=== PATIENT | male | born 2000 | race Hispanic/Latino ===

== ENCOUNTER 2025-03-02 15:37 | Emergency (ER) | payer SELFPAY ==
--- OUTSIDE RECORDS SUMMARY | 2025-03-02 15:39 | XMS_ITS | Clinical Summary ---
Author Organization [facility] Address [address] [place] [address] Care Team Providers Care House Builder Name Role Phone Lissette Huber MD Primary Care Provider Source Comments [facility],non-owned Affiliates and Associated Physician Practices is amultiple site organization consisting of ambulatory clinics and hospital sitesin [place], [place], [place] and [place]. This disclosure is being madepursuant to the Care Everywhere program and may not contain all information available regarding this patient. Last updated 18.[facility] [employer] Allergies No known active allergies Medications * Be aware that medications may not be up to date on this document. Alwaysverify current medications with the patient. 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 Gender Identity Not on file Sexual Orientation Not on file Last Filed Vital Signs Vital Sign Reading Time Taken Comments Blood Pressure 116/58 08/19/2015 5:23 PM CDT Pulse 100 08/19/2015 4:02 PM CDT Temperature 37.9 C (100.3 F) 08/19/2015 5:23 PM CDT Respiratory Rate 16 08/19/2015 5:23 PM CDT Oxygen Saturation 100% 08/19/2015 5:23 PM CDT Inhaled Oxygen Concentration - - Weight 57.9 kg (127 lb 10.3 oz) 08/19/2015 4:02 PM CDT Height - - Body Mass Index - - Plan of Treatment Health Maintenance Due Date Last Done Comments HIV SCREENING 2017 HPV VACCINE (1 - Male 3-dose series) 2017 MENINGOCOCCAL (Group B) VACC INE SHARED DECISION-MAKING (1 of 2 - Standard) 2018 HEPATITIS C SCREENING 03/09/2020 DTAP/TDAP/TD VACCINES (1 - Tdap) 2021 HEPATITIS B VACCINE (1 of 3 - 19+ 3-dose series) 2021 COVID-19 VACCINE (1 - 2023-2 5 season) 2024 DEPRESSION SCREENING 10/20/2024 INFLUENZA VACCINE (Season Ended) 2025 ZOSTER VACCINE (1 of 2) 2052 HIB VACCINE Aged Out No longer eligi ble based on patient's age to complete this topic MENINGOCOCCAL GROUPS A/C/Y/W VACCINE Aged Out No longer eligible b ased on patient's age to complete this topic PNEUMOCOCCAL VACCINE Aged Out No long er eligible based on patient's age to complete this topic Insurance Care Teams House Builder Relationship Specialty Start Date End Date Lissette Huber MD [address] [place] [address] [address] [place] [phone] PCP - General Family Medicine 04/26/14
[2025-03-02 15:42] VITALS: BP 120/69; PULSE 80; RESP 19; TEMP 36.7; O2SAT 100
--- NOTE | 2025-03-02 16:40 | ED.SKABFB ---
HPI - Skin/Abscess/Foreign Bdy General Chief complaint: Skin/Abscess/Foreign Body Stated complaint: R breast mass? also on his R side? Time Seen by Provider: 03/02/25 16:33 History of Present Illness HPI narrative: Pt presents with three separate unrelated complaints. Pt had a lump under his right nipple that was a little tender but now is not tender but he can still feel the bump. Pt also has a spot on his waistline that was tender and red but has now nearly resolved. Pt also has had an intermittent posterior BAUM on the left at the base of his skull that comes and goes. Pt denies fever or focal neuro symptoms. Related Data Allergies Allergy/AdvReac Type Severity Reaction Status Date / Time No Known Allergies Allergy Verified 11/24/18 21:16 Review of Systems Review of Systems: All systems reviewed & are unremarkable except as noted in HPI and below Exam Const: General: healthy appearing and no acute distress Nutritional Appearance: well nourished Orientation/consciousness: patient oriented x3 Limitations: no limitations HENMT: Head: normal to inspection Eyes: Pupils: Equal, round and reactive pupils present EOM: EOMs intact bilaterally Neck: Neck: normal visual inspection Other: some tenderness left occiput/upper c spine with some spasm Chest: Other: non tender nodule under left nipple Resp: Effort & Inspection: normal respiratory effort Auscultation: clear to auscultation bilaterally Cardio: Rate: regular rate Rhythm: regular rhythm GI: GI Palp: Yes Soft to palpation and No Tenderness to palpation present (GI) Auscultation: normal bowel sounds Skin: Other: small healed abscess or folliculitis waistband on right Neuro: General: patient oriented x3, moves all extremities and no focal motor deficits Speech: normal speech Extrem: General: normal to inspection and no clubbing, cyanosis or edema Psych: Mental Status: mental status grossly normal Affect: normal affect Attitude: cooperative Course Vital Signs Vital signs: Vital Signs Temperature 98.0 F 03/02/25 15:42 Pulse Rate 80 03/02/25 15:42 Respiratory Rate 03/02/25 15:42 Blood Pressure 120/69 03/02/25 15:42 Pulse Oximetry 100 03/02/25 15:42 Temperature 98.0 F 03/02/25 15:42 Pulse Rate 80 03/02/25 15:42 Respiratory Rate 03/02/25 15:42 Blood Pressure 120/69 03/02/25 15:42 Pulse Oximetry 100 03/02/25 15:42 MDM - Skin/Abscess/Foreign Bdy MDM Narrative Medical decision making narrative: Pt has 3 separate complaits per HPI. will give a few flexeril for BAUM and some bactoban for area on waist. Pt told to watch for tenderness or growing of nodule under nipple Discharge Plan Discharge Clinical Impression: Folliculitis Patient Disposition: Home Condition: Stable Instructions: Antibiotic Form, Folliculitis (ED) Patient Language: Macanese Prescriptions: New mupirocin [Centany] 2 % ointment 1 applic topical BID Qty: 15 0RF cyclobenzaprine 10 mg tablet 10 mg PO TID Qty: 20 0RF Follow-up/Referrals: PHYSICIAN NOT ON STAFF,NONSTAFF [Non-Staff] -
--- OUTSIDE RECORDS SUMMARY | 2025-03-02 16:59 | XMS_ITS | Clinical Summary ---
Author Organization [facility] Address [address] [place] [address] Care Team Providers Care Manufacturing Engineering Director Name Role Phone Lissette Huber MD Primary Care Provider [phone] Source Comments [facility],non-owned Affiliates and Associated Physician Practices is amultiple site organization consisting of ambulatory clinics and hospital sitesin [place], [place], [place] and [place]. This disclosure is being madepursuant to the Care Everywhere program and may not contain all information available regarding this patient. 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
== END 2025-03-02 17:10 | disposition home or self-care (01) ==
LOC: ANHED 16:58
PROVIDERS: Emergency Provider Emergency Medicine
DX: L73.9 Follicular disorder, unspecified (principal)
CPT/HCPCS: 99283

== ENCOUNTER 2025-07-23 07:00 | Emergency (ER) | payer SELFPAY ==
--- NOTE | ~2025-07-23 | XR_ITS ---
Examination: XR chest 2V Clinical History: Chest pain Comparison: 07/10/2021 Technique: PA and Lateral Findings: Cardiomediastinal silhouette normal size and configuration. Lungs clear. No acute bony abnormality. IMPRESSION: 1. No acute cardiopulmonary findings. Reviewed, dictated and finalized at location R.
[2025-07-23 07:12] VITALS: BP 127/82; PULSE 73; RESP 18; TEMP 36.6; O2SAT 98
--- NOTE | 2025-07-23 07:12 | ECG_ITS ---
Test Date: 2025-07-23 07:05:51 Measurements Intervals [place] Rate: 70 P: 46 AK: 146 QRS: 46 QRSD: 85 T: 37 QT: 333 QTc: 360 Interpretive Statements SINUS RHYTHM BASELINE ARTIFACT- I, II, AVR NORMAL ECG No previous ECG available for comparison Electronically Signed On 07-23-2025 07:16:55 CDT by Miguel Malik D.O.
[2025-07-23 07:24] VITALS: PULSE 86; O2SAT 100
[2025-07-23 07:26] VITALS: BP 127/82; PULSE 79; RESP 20; O2SAT 98
--- OUTSIDE RECORDS SUMMARY | 2025-07-23 07:39 | XMS_ITS | Clinical Summary ---
Author Organization [facility] Address [address] [place] [address] Care Team Providers Care Push Button Switch Assembler Name Role Phone Lissette Huber MD Primary Care Provider [phone] Source Comments [facility],non-owned Affiliates and Associated Physician Practices is amultiple site organization consisting of ambulatory clinics and hospital sitesin [place], [place], [place]. This disclosure is being madepursuant to the Care Everywhere program and may not contain all information available regarding this patient. 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 Gender Identity Not on file Sexual Orientation [...] of 3 - 19+ 3-dose series) 2021 DEPRESSION SCREENING 10/20/2024 COVID-19 VACCINE (1 - 2023-2 5 season) 2025 INFLUENZA VACCINE (#1) 2025 ZOSTER VACCINE (1 of 2) 2052 HIB VACCINE Aged Out No longer eligi ble based on patient's age to complete this topic MENINGOCOCCAL GROUPS A/C/Y/W VACCINE Aged Out No longer eligible b ased on patient's age to complete this topic PNEUMOCOCCAL VACCINE Aged Out No long er eligible based on patient's age to complete this topic Insurance Care Teams Push Button Switch Assembler Relationship Specialty Start Date End Date Lissette Huber MD [address] [place] [address] [address] [place] [phone] PCP - General Family Medicine 04/26/14
[2025-07-23] MEDS: BELLADONNA ALK/PHENOB ELIX 10 ML, MAG HYDROX/ALUMINUM HYD/SIMETH 30 ML, LIDOCAINE 2% VI... PO (07:45)
[2025-07-23] MEDS: PANTOPRAZOLE 40 MG TABLET PO (07:45)
[2025-07-23 07:56] LABS: Hematocrit 48.1 % (42.0-52.0); Hemoglobin 15.6 g/dL (14.0-18.0); Immature Granulocyte Percent A 0.9 % (0-0.5); Lymphocytes Absolute Auto 3.03 K/mm3 (0.9-3.2); Mean Corpuscular HGB Conc 32.4 g/dl (32-36); Mean Corpuscular Hemoglobin 26.7 pg (26-34); Mean Corpuscular Volume 82.2 fl (80-100); Nucleated Red Blood Cells Absolute Auto 0.000 K/mm3 (0.0-0.012); Nucleated Red Blood Cells Perc 0.0 % (0.0-0.2); Platelet Count Result 271 k/mm3 (150-375); Red Blood Count 5.85 M/mm3 (4.6-6.20); White Blood Count 9.6 K/mm3 (4.5-10.0)
[2025-07-23 08:05] LABS: Alanine Aminotransferase 23 U/L (6-50); Albumin Level 4.4 g/dL (3.5-5.1); Alkaline Phosphatase 43 U/L (38-126); Anion Gap 8 mmol/L (4-12); Aspartate Amino Transferase 27 U/L (17-59); Bilirubin,Total 0.7 mg/dL (0.2-1.3); Blood Urea Nitrogen 13 mg/dL (9-20); Calcium 8.6 mg/dL (8.4-10.2); Carbon Dioxide 29 mmol/L (22-30); Chloride 101 mmol/L (98-107); Estimated CRCL calculation 117 ml/min; Estimated Glomerular Filt Rate > 60; Glucose 91 mg/dL (65-110); Lipase 97 U/L (23-300); Potassium 4.0 mmol/L (3.4-5.0); Sodium 138 mmol/L (137-145); Total Protein 7.9 g/dL (6.3-8.2)
[2025-07-23 08:16] LABS: Troponin I < 0.012 ng/mL (0.000-0.034)
--- NOTE | 2025-07-23 08:42 | ED_ITS ---
HPI - Chest Pain General Chief Complaint: Chest Pain Stated Complaint: chest pain Time Seen by Provider: 07/23/25 07:20 Source: patient Mode of arrival: ambulatory Limitations: no limitations History of Present Illness HPI narrative: This is a 24-year-old male, does she from planning of chest pain for past month. The patient describes pain as pressure-like worse with laying down, after eating and intermittently worse with walking. He denies any recent trauma, nausea, vomiting, diaphoresis or weakness/numbness. He has no other complaints at this time. Related Data Allergies Allergy/AdvReac Type Severity Reaction Status Date / Time No Known Allergies Allergy Verified 11/24/18 21:16 Review of Systems 2 Review of Systems: All systems reviewed & are unremarkable except as noted in HPI and below PMFSH Past Medical History Medical History No significant past medical history Surgical History Surgical History No significant past surgical history Social History Social History Smoking status: Never smoker Alcohol intake: current Substance use: never Exam 2 Narrative: GENERAL: Well-developed, well-nourished, and in no acute distress. HEAD: Normocephalic, atraumatic. EYES: PERRLA and EOMI. CHEST: Clear to auscultation. No respiratory distress. No wheezes rales or rhonchi HEART: Regular rate and rhythm. No murmur heard. Normal peripheral pulses. ABDOMEN: Soft, nontender, nondistended, normal active bowel sounds. EXTREMITIES: Normal range of motion. No edema. SKIN: Warm, dry, no rash. NEURO: Alert and oriented x3. No focal deficit. Moving all 4 limbs spontaneously PSYCH: Normal mood and affect. Course Course Emergency Course: 08:44 - EKG unremarkable. CBC within normal limits. Chemistries unremarkable. Initial troponin negative. Heart score 1. Considering the duration of patient's symptoms, I do not suspect ACS. Lipase within normal limits. Chest x-ray unremarkable. After GI cocktail and PPI, the patient states his pain has improved. I suspect gastritis versus GERD. Will discharge with PPI and recommendation for primary care follow-up. I discussed the findings and recommendations with the patient. Discussed return and emergency precautions including signs/symptoms of ACS and respiratory distress. The patient voiced understanding and agreement with the plan. All questions answered to his satisfaction. Vital Signs Vital signs: Vital Signs Temperature 97.9 F 07/23/25 07:12 Pulse Rate 73 07/23/25 07:12 Respiratory Rate 18 07/23/25 07:12 Blood Pressure 127/82 07/23/25 07:12 Pulse Oximetry 98 07/23/25 07:12 Oxygen Delivery Room Air 07/23/25 07:12 Temperature 97.9 F 07/23/25 07:12 Pulse Rate 79 07/23/25 07:26 Respiratory Rate 20 07/23/25 07:26 Blood Pressure 127/82 07/23/25 07:26 Pulse Oximetry 98 07/23/25 07:26 Oxygen Delivery Room Air 07/23/25 07:24 MDM - Chest Pain MDM Narrative Medical decision making narrative: Plan: Imaging, EKG, troponin, pain control, ppi, reassess Differential Diagnosis Differential diagnosis: Likely pneumothorax, costochondritis and other (ACS, GERD, gastritis, pancreatitis, metabolic abnormality, other) Lab Data 07/23/25 07:43 07/23/25 07:43 Labs: Lab Results 07/23/25 Range/Units 07:43 WBC 9.6 (4.5-10.0) K/mm3 RBC 5.85 (4.6-6.20) M/mm3 Hgb 15.6 (14.0-18.0) g/dL Hct 48.1 (42.0-52.0) % MCV 82.2 (80-100) fl MCH 26.7 (26-34) pg MCHC 32.4 (32-36) g/dl RDW 13.4 (11.5-14.5) % Plt Count 271 (150-375) k/mm3 MPV 10.2 (7.4-10.4) fl Immature Gran % (Auto) 0.9 H (0-0.5) % Neut % (Auto) 59.6 (45.5-73.1) % Lymph % (Auto) 31.7 (18.3-44.2) % Emmons % (Auto) 5.9 (2.6-8.5) % Eos % (Auto) 1.4 (0-4.4) % Baso % (Auto) 0.5 (0.2-1.2) % Lymph # (Auto) 3.03 (0.9-3.2) K/mm3 Emmons # (Auto) 0.6 (0.1-0.6) K/mm3 Eos # (Auto) 0.1 (0-0.3) K/mm3 Baso # (Auto) 0.1 (0.0-0.1) K/mm3 Abs Immat Gran (auto) 0.09 H (0.00-0.031) K/mm3 Absolute Neuts (auto) 5.7 (1.3-6.7) K/mm3 Absolute Nucleated RBC 0.000 (0.0-0.012) K/mm3 Nucleated RBC % 0.0 (0.0-0.2) % Sodium 138 (137-145) mmol/L Potassium 4.0 (3.4-5.0) mmol/L Chloride 101 (98-107) mmol/L Carbon Dioxide 29 (22-30) mmol/L Anion Gap 8 (4-12) mmol/L BUN 13 (9-20) mg/dL Creatinine 0.77 (0.7-1.3) mg/dL Estim Creat Clear Calc 117 ml/min Estimated GFR > 60 (59 - ) Glucose 91 (65-110) mg/dL Calcium 8.6 (8.4-10.2) mg/dL Total Bilirubin 0.7 (0.2-1.3) mg/dL AST 27 (17-59) U/L ALT 23 (6-50) U/L Alkaline Phosphatase 43 (38-126) U/L Troponin I < 0.012 (0.000-0.034) ng/mL Total Protein 7.9 (6.3-8.2) g/dL Albumin 4.4 (3.5-5.1) g/dL Lipase 97 (23-300) U/L ECG Data EKG #1: Attestation: I personally reviewed and interpreted this ECG as follows: ECG completion date: 07/23/25 ECG completion time: 07:05 Prior ECG tracings: not available for review Interpretation: Sinus rhythm, rate 70, normal axis, no ST segment elevations or T-wave inversions concerning for ischemia, normal intervals with QTC of 360. Discharge Plan Discharge Clinical Impression: GERD (gastroesophageal reflux disease), Atypical chest pain Patient Disposition: Home Condition: Stable Instructions: Antibiotic Form, Chest Pain (ED), GERD (Gastroesophageal Reflux Disease) (ED) Additional Instructions: You were seen in the emergency department. Your labs and EKG were not concerning for injury to the heart or acute process in the chest. I suspect your pain is related to acid reflux and gastritis. I recommend an acid blocking medication follow-up with a primary care doctor. If you develop new or worsening chest pain, shortness of breath, loss of consciousness, or if you have other emergent concerns for life, limb, or eyesight, return to the emergency department. Patient Language: Spanish Prescriptions: New omeprazole 40 mg capsule,delayed release(DR/EC) 40 mg PO DAILY Qty: 30 0RF No Action mupirocin [Centany] 2 % ointment 1 applic topical BID Qty: 15 0RF cyclobenzaprine 10 mg tablet 10 mg PO TID Qty: 20 0RF Follow-up/Referrals: Cristina Teran DO [Physician, Family Practice] - 2 Weeks Time of Disposition: 08:44
[2025-07-23 09:26] VITALS: BP 104/83; PULSE 70; RESP 18; O2SAT 100
== END 2025-07-23 09:28 | disposition home or self-care (01) ==
PROVIDERS: Emergency Provider Preventive Medicine Aerospace Medicine
DX: K21.9 Gastro-esophageal reflux disease without esophagitis (principal); R07.89 Other chest pain
CPT/HCPCS: 36415; 71046; 80053; 83690; 84484; 85025; 93005; 99284; A9270